=== PATIENT | female | born 1985 | race Caucasian/White ===

== ENCOUNTER 2021-11-24 19:22 | Emergency (ER) | payer OTHER | END 2021-11-24 20:40 | disposition home or self-care (01) | LOC: CSHERS 19:22 | DX: O99.511 Diseases of the respiratory system complicating pregnancy, first trimester (principal); J20.9 Acute bronchitis, unspecified; O24.311 Unspecified pre-existing diabetes mellitus in pregnancy, first trimester; E11.9 Type 2 diabetes mellitus without complications; Z79.84 Long term (current) use of oral hypoglycemic drugs; Z87.891 Personal history of nicotine dependence; Z3A.01 Less than 8 weeks gestation of pregnancy | CPT/HCPCS: 71045 ==

== ENCOUNTER 2021-12-06 16:12 | Emergency (ER) | payer OTHER | END 2021-12-06 17:45 | disposition home or self-care (01) | LOC: CSHERS 16:12 | DX: J01.90 Acute sinusitis, unspecified (principal); E11.9 Type 2 diabetes mellitus without complications; Z87.891 Personal history of nicotine dependence | CPT/HCPCS: 99283 ==